=== PATIENT | female | born 1955 | race Caucasian/White ===

== ENCOUNTER → 2016-11-25 | Day surgery (SDC) | payer OTHER ==
[~2016-11-25] VITALS: Ht 170.2 cm; Wt 105.7 kg
[~2016-11-25] MED LIST: ALDACTONE25 MG PO; CIPRO250 MG PO/FT; COREG6.25 MG PO; FEOSOL325 MG PO; INDERAL10 MG PO; LASIX20 MG PO; LISINOPRIL-HCT1 EAC2 PO; NEXIUM40 MG PO; NORCO 5-325 MG1 TAB PO; OPCON-A EYE DRO15 ML OPHTH; ZOFRAN4 MG PO; ZOLOFT50 MG PO
--- NOTE | ~2016-11-25 | OR ---
PATIENT'S NAME: NARCISO NORTON [facility] AGE: 61 Y [address] ROOM: [place] [address] LOCATION: [facility] ADMIT DATE: 11/25/2016 OR/Procedure Report DISCHARGE DATE: FAMILY PHYSICIAN: Rambo Arboleda MD ATTENDING PHYSICIAN: KASHMIR CORADO SURGEON: Froylan Goodman MD TURNER MACHINE: DATE OF PROCEDURE: 11/25/2016 PROCEDURE PERFORMED: Esophagogastroduodenoscopy. INDICATIONS: History of esophageal varices. MEDICATIONS: Please see anesthesiology record for details. CONSENT: The risks/benefits/alternatives were discussed, and the patient or her power of development advisor expressed understanding and agreed to proceed. Informed consent was obtained and placed in the chart. Time-out was completed prior to starting the procedure. DESCRIPTION OF PROCEDURE: The patient was placed in the left lateral decubitus position. One-lead EKG monitoring was used along with intermittent blood pressure monitoring and pulse oximetry. Bite block was placed in the patient's mouth. The above medications were given and titrated to response. Once adequate sedation was completed, the endoscope was passed through the patient's mouth into the posterior oropharynx. The endoscope was then passed into the esophagus, stomach, and duodenal bulb. The duodenum was examined through the third portion. The endoscope was then withdrawn into the stomach. In the stomach, retroflexion was completed. The scope was then straightened and withdrawn from the patient. The patient tolerated the procedure well. There were no complications. SUMMARY OF FINDINGS: 1. Two columns of small varices were seen in the mid esophagus that flattened almost completely on insufflation. The distal esophagus was without esophageal varices. 2. Portal gastropathy in the stomach. 3. Normal duodenum. ASSESSMENT AND PLAN: Esophageal varices: The patient has small esophageal varices on exam today. She is currently on a beta-bolivar, and I would continue this medication. Given her prophylaxis with carvedilol, she could remain on this without further upper endoscopy; however, generally, I would like to repeat endoscopy in one year to re-evaluate the varices. PATIENT'S NAME: NARCISO NORTON [facility] AGE: 61 Y [address] ROOM: [place] [address] LOCATION: [facility] ADMIT DATE: 11/25/2016 OR/Procedure Report DISCHARGE DATE: FAMILY PHYSICIAN: Rambo Arboleda MD ATTENDING PHYSICIAN: KASHMIR CORADO J TOAN GOODMAN MD JRT/modl /[id number] d: 11/25/16 1155 t: 11/26/16 1359, OPERATIVE SUMMARY
== END | disposition disaster alternative care site (69) ==
LOC: GPOC 11-18 10:00 → GEND 07:34
PROC: 0DJ08ZZ Inspection of Upper Intestinal Tract, Via Natural or Artificial Opening Endoscopic (ICD-10-PCS; principal; 2016-11-25)
DX: K31.89 Other diseases of stomach and duodenum (principal); I85.00 Esophageal varices without bleeding; K74.60 Unspecified cirrhosis of liver; D50.0 Iron deficiency anemia secondary to blood loss (chronic); I10 Essential (primary) hypertension; Z98.890 Other specified postprocedural states
CPT/HCPCS: J7030